=== PATIENT | female | born 1995 | race African-American/Black ===

== ENCOUNTER 2017-08-23 08:23 | Outpatient (CLI) | payer BC ==
[2017-08-23] MEDS ORDERED: Gadobenate Dimeglumine 529 MG/1 ML (20ML VIAL) ONE (16:31)
--- NOTE | 2017-08-28 10:35 | MRI ---
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 The patient was recomme nded to have a followup MRI in 5 years. COMPARISON: None. Attempt was made to obtain prior MRI which has been unsuccessful. Correlation is made with a brain M RI report from October 21, 2012, at [facility]. TECHNIQUE: Brain MRI is performed with and without intravenous Gadolinium administration. Multisequential, mult iplanar imaging is performed. FINDINGS: There is hypointensity involving the medial aspect of the left thalamus on the axial gradient echo se quence suggesting hemosiderin deposition from remote hemorrhage. No acute hemorrhage is appreciated. There is intrinsic T1 hyperintensity with mixed T2 and FLAIR hyperintensity involving the medial aspe ct of the left thalamus. There is no obvious associated enhancement. This lesion measures 1.2 cm. No additional lesions are appreciated. There appears to be change in the right frontal lobe secondar y to a previous LITHOGRAPHIC PRESS FEEDER shunt catheter. There is dilatation of the ventricular system. Central arterial flow voids are maintained. Absent restricted diffusion. Calvarium has a normal T1 marrow signal intensity. Midline brain parenchymal structures are unremark able. Brain volume, less than expected for patient's age. Cortical flowers-white matter differentiation is pr eserved. Adequate aeration of the sinuses and mastoid air cells. IMPRESSION: 1. Left thalamic lesion measuring 1.3 cm. The lesion appears to be similar to the prior examination , based upon description in the prior report. Direct comparison is not possible. Cavernous malforma tion is a strong consideration. 2. There is evidence of a significant dilatation of the ventricular system. There is evidence of a previous LITHOGRAPHIC PRESS FEEDER shunt catheter. Currently, a LITHOGRAPHIC PRESS FEEDER shunt catheter is not appreciated. 3. Brain volume loss, greater than expected for patient's age. POS: [facility]
== END 2017-08-23 08:24 | disposition home or self-care (01) ==
LOC: TBSIIMAG 08:23
PROVIDERS: ATTEND Family Medicine
DX: I51.7 Cardiomegaly; Z98.2 Presence of cerebrospinal fluid drainage device; Q28.3 Other malformations of cerebral vessels; G93.89 Other specified disorders of brain
CPT/HCPCS: 70553; A9579